=== PATIENT | female | born 1985 | race Caucasian/White ===

== ENCOUNTER 2018-04-29 10:42 | Emergency (ER) | payer OTHER ==
[2018-04-29 10:48] VITALS: RESP 18
--- NOTE | 2018-04-29 11:48 | ED ---
Skin/Abscess/FB HPI - General Chief complaint: Skin/Abscess/Foreign Body Stated complaint: Female Time Seen by Provider: 04/29/18 11:25 Source: patient, RN notes reviewed Mode of arrival: ambulatory Limitations: no limitations - History of Present Illness Initial comments: 32-year-old female presents emergency Department chief complaint of possible broken blood vessel. Patient states she's been sick recently placed on antibiotics for acute bronchitis. Patient states she coughs so hard that she tries to bear down because she has some stress incontinence. She states that she felt a bulge just above her urethra and felt they looked like spider veins. Patient states she has not with her lately but states he gets sore towards the day. Denies any redness no dysuria at this time though she was recently treated for urinary tract infection also. Patient denies any vaginal discharge she did state that she does started her menstrual cycle. She has no other complaints. - Related Data Home Medications Medication Instructions Recorded Confirmed Amoxicillin 500 mg PO DAILY 04/29/18 04/29/18 Allergies Allergy/AdvReac Type Severity Reaction Status Date / Time Sulfa (Sulfonamide AdvReac Nausea Verified 04/29/18 11:02 Antibiotics) Review of Systems ROS Statement: Those systems with pertinent positive or pertinent negative responses have been documented in the HPI. ROS Other: All systems not noted in ROS Statement are negative. Past Medical History Past Medical History: No Reported History History of Any Multi-Drug Resistant Organisms: None Reported Additional Past Surgical History / Comment(s): eye surgery, LEEP Past Psychological History: No Psychological Hx Reported Smoking Status: Current every day smoker Past Alcohol Use History: None Reported Past Drug Use History: None Reported General Exam Limitations: no limitations General appearance: alert, in no apparent distress Head exam: Present: atraumatic, normocephalic, normal inspection Respiratory exam: Present: normal lung sounds bilaterally. Absent: respiratory distress, wheezes, rales, rhonchi, stridor Cardiovascular Exam: Present: regular rate, normal rhythm, normal heart sounds. Absent: systolic murmur, diastolic murmur, rubs, gallop, clicks GI/Abdominal exam: Present: soft, normal bowel sounds. Absent: distended, tenderness, guarding, rebound, rigid External exam: Present: normal external exam, other (Exam performed with jasmin paredes). Absent: erythema, swelling, lesions, lacerations, ecchymosis Course Vital Signs 04/29/18 10:44 Temperature 98.2 F Pulse Rate 104 H Respiratory 18 Rate Blood Pressure 145/68 O2 Sat by Pulse 99 Oximetry Medical Decision Making - Medical Decision Making 32-year-old female presented for concern for ruptured blood vessel. There is no clinical signs of it, no clinical signs of infection. Patient did have urinalysis which showed hematuria secondary to chronic menses. Patient will be discharged return parameters discussed. - Lab Data Lab Results 04/29/18 04/29/18 Range/Units 11:50 11:50 Urine Color Dark Red Urine Appearance Bloody H (Clear) Urine RBC >182 H (0-5) /hpf Urine WBC 46 H (0-5) /hpf Urine HCG, Qual Not Detected (Not Detectd) Disposition Clinical Impression: Pelvic pain Disposition: HOME SELF-CARE Condition: Stable Instructions: Pelvic Pain (ED) Additional Instructions: Please return to the Emergency Department if symptoms worsen or any other concerns. Is patient prescribed a controlled substance at d/c from ED?: No Referrals: None,Stated [Primary Care Provider] - 1-2 days Time of Disposition: 13:12
[2018-04-29 12:45] LABS: Color,Urine Dark Red; RBC,Urine >182 /hpf (0-5); WBC,Urine 46 /hpf (0-5)
[2018-04-29 12:46] LABS: Appearance,Urine Bloody (Clear)
[2018-04-29 13:20] VITALS: BP 107/68; PULSE 84; TEMP 98.6
== END 2018-04-29 13:19 | disposition home or self-care (01) ==
LOC: EC 10:42
DX: R10.2 Pelvic and perineal pain (principal); R05 Cough; F17.200 Nicotine dependence, unspecified, uncomplicated; Z88.2 Allergy status to sulfonamides
CPT/HCPCS: 81001; 81025; 99283

== ENCOUNTER 2021-07-26 22:27 | Emergency (ER) | payer OTHER ==
[2021-07-26 22:33] VITALS: TEMP 98.1
[2021-07-26] MEDS ORDERED: SODIUM CHLORIDE 0.9% 1,000 ML IV STA (22:55)
[2021-07-26 23:07] LABS: Basophils # (A) 0.1 k/uL (0-0.2); Basophils % (A) 1 %; Eosinophils # (A) 0.1 k/uL (0-0.7); Eosinophils % (A) 2 %; HCT 45.5 % (34.0-46.0); HGB 15.8 gm/dL (11.4-16.0); Lymphocytes # (A) 1.5 k/uL (1.0-4.8); Lymphocytes % (A) 24 %; MCH 34.4 pg (25.0-35.0); MCHC 34.8 g/dL (31.0-37.0); MCV 98.8 fL (80.0-100.0); Mean Platelet Volume 7.3; Monocytes # (A) 0.5 k/uL (0-1.0); Monocytes % (A) 7 %; Neutrophils # (A) 4.1 k/uL (1.3-7.7); Neutrophils % (A) 64 %; Platelet Count 208 k/uL (150-450); WBC 6.4 k/uL (3.8-10.6)
[2021-07-26 23:19] LABS: INR 0.8 (<1.2); Partial Thromboplastin Time 24.9 sec (22.0-30.0); Prothrombin Time 9.5 sec (9.0-12.0)
[2021-07-26 23:32] LABS: ALT 22 U/L (4-34); AST 38 U/L (14-36); African American GFR (CKD) >90 (>60 ml/min/1.73 sqM); Albumin 4.7 g/dL (3.5-5.0); Alkaline Phosphatase 112 U/L (38-126); Anion Gap 14 mmol/L; Blood Urea Nitrogen 11 mg/dL (7-17); Calcium 10.2 mg/dL (8.4-10.2); Carbon Dioxide 21 mmol/L (22-30); Chloride 104 mmol/L (98-107); Glucose 114 mg/dL (74-99); Magnesium 1.9 mg/dL (1.6-2.3); Non-African American GFR(CKD) 88 (>60 ml/min/1.73 sqM); Potassium 3.3 mmol/L (3.5-5.1); Sodium 139 mmol/L (137-145); Total Bilirubin 0.6 mg/dL (0.2-1.3)
--- NOTE | 2021-07-26 23:45 | XR ---
EXAMINATION TYPE: XR chest 2V DATE OF EXAM: 07/26/2021 COMPARISON: NONE HISTORY: Dysrhythmia TECHNIQUE: 2 views FINDINGS: Heart and mediastinum are normal. Lungs are clear. Diaphragm is normal. Bony thorax appears normal. There are chest leads. IMPRESSION: Normal chest.
[2021-07-26 23:56] VITALS: RESP 20
[2021-07-27] MEDS ORDERED: POTASSIUM CHLORIDE ER 20 MEQ TAB.ER PO STA (00:07)
--- NOTE | 2021-07-27 00:09 | ED ---
General Adult HPI - General Chief complaint: Arrhythmia/Palpitations Stated complaint: Panic Attack Time Seen by Provider: 07/26/21 22:46 Source: patient Mode of arrival: ambulatory Limitations: no limitations - History of Present Illness Initial comments: 35 year-old female patient presents to the emergency department for evaluation of "pounding" heart. States that it started earlier today. She reports drinking alcohol today. Denies any chest pain or shortness of breath. Denies nausea or vomiting. She is concerned she may have COVID. States she does feel anxious with this. Reports intermittent history of similar symptoms. Reports mild cough and congestion. Denies any fever or chills. Patient denies any recent rash, abdominal pain, diarrhea, constipation, back pain, numbness, tingling, dizziness, weakness, hematuria, dysuria, urinary urgency, urinary frequency, headache, visual changes, or any other complaints. - Related Data Home Medications Medication Instructions Recorded Confirmed No Known Home Medications 07/26/21 07/26/21 Allergies Allergy/AdvReac Type Severity Reaction Status Date / Time Sulfa (Sulfonamide AdvReac Nausea Verified 07/26/21 23:11 Antibiotics) Review of Systems ROS Statement: Those systems with pertinent positive or pertinent negative responses have been documented in the HPI. ROS Other: All systems not noted in ROS Statement are negative. Past Medical History Past Medical History: No Reported History History of Any Multi-Drug Resistant Organisms: None Reported Additional Past Surgical History / Comment(s): eye surgery, LEEP Past Psychological History: No Psychological Hx Reported Smoking Status: Current every day smoker Past Alcohol Use History: Abuse, Daily Past Drug Use History: None Reported General Exam Limitations: no limitations General appearance: alert, in no apparent distress, other (This is a well- developed, well-nourished adult female in no acute distress.) Eye exam: Present: normal appearance, PERRL, EOMI. Absent: scleral icterus, conjunctival injection, periorbital swelling ENT exam: Present: normal exam, normal oropharynx, mucous membranes moist Respiratory exam: Present: normal lung sounds bilaterally. Absent: respiratory distress, wheezes, rales, rhonchi, stridor Cardiovascular Exam: Present: normal rhythm, tachycardia, normal heart sounds. Absent: systolic murmur, diastolic murmur, rubs, gallop, clicks GI/Abdominal exam: Present: soft, normal bowel sounds. Absent: distended, tenderness, guarding, rebound, rigid Neurological exam: Present: alert, oriented X3, CN II-XII intact Psychiatric exam: Present: normal affect, normal mood Skin exam: Present: warm, dry, intact, normal color. Absent: rash Course Vital Signs 07/26/21 07/26/21 07/26/21 22:30 23:07 23:54 Temperature 98.1 F Pulse Rate 131 H 110 H 109 H Respiratory 22 18 20 Rate Blood Pressure 134/83 147/107 O2 Sat by Pulse 98 95 98 Oximetry 07/27/21 00:22 Temperature Pulse Rate 99 Respiratory 20 Rate Blood Pressure 119/74 O2 Sat by Pulse 98 Oximetry EKG Findings - EKG Comments: EKG Findings:: EKG obtained at 2303 shows normal sinus rhythm with a rate of 119, DE interval is 60, QRS duration 72, QT 308, QTC 433. No evidence of ST elevation or depression. Medical Decision Making - Medical Decision Making 35-year-old female patient presented to the emergency department today for evalu ation of pounding heart. Physical examination is unremarkable. Lungs are clear to auscultation. She is mildly tachycardic. EKG is unremarkable. Labs reviewed and did reveal potassium 3.3. Glucose 114. COVID was negative. States she does feel better she is requesting to go home. Instructed to follow-up with her primary care physician for recheck in 1-2 days. Return parameters were discussed in detail. She verbalizes understanding and agrees this plan. My attending is Dr. Cunha. - Lab Data Result diagrams: 07/26/21 22:57 07/26/21 22:57 Lab Results 07/26/21 07/26/21 07/26/21 Range/Units 22:57 22:57 22:57 WBC 6.4 (3.8-10.6) k/uL RBC 4.60 (3.80-5.40) m/uL Hgb 15.8 (11.4-16.0) gm/dL Hct 45.5 (34.0-46.0) % MCV 98.8 (80.0-100.0) fL MCH 34.4 (25.0-35.0) pg MCHC 34.8 (31.0-37.0) g/dL RDW 11.0 L (11.5-15.5) % Plt Count 208 (150-450) k/uL MPV 7.3 Neutrophils % 64 % Lymphocytes % 24 % Monocytes % 7 % Eosinophils % 2 % Basophils % 1 % Neutrophils # 4.1 (1.3-7.7) k/uL Lymphocytes # 1.5 (1.0-4.8) k/uL Monocytes # 0.5 (0-1.0) k/uL Eosinophils # 0.1 (0-0.7) k/uL Basophils # 0.1 (0-0.2) k/uL PT 9.5 (9.0-12.0) sec INR 0.8 (<1.2) APTT 24.9 (22.0-30.0) sec Sodium 139 (137-145) mmol/L Potassium 3.3 L (3.5-5.1) mmol/L Chloride 104 (98-107) mmol/L Carbon Dioxide 21 L (22-30) mmol/L Anion Gap 14 mmol/L BUN 11 (7-17) mg/dL Creatinine 0.85 (0.52-1.04) mg/dL Est GFR (CKD-EPI)AfAm >90 (>60 ml/min/1.73 sqM) Est GFR (CKD-EPI)NonAf 88 (>60 ml/min/1.73 sqM) Glucose 114 H (74-99) mg/dL Calcium 10.2 (8.4-10.2) mg/dL Magnesium 1.9 (1.6-2.3) mg/dL Total Bilirubin 0.6 (0.2-1.3) mg/dL AST 38 H (14-36) U/L ALT 22 (4-34) U/L Alkaline Phosphatase 112 (38-126) U/L Troponin I (0.000-0.034) ng/mL Total Protein 8.0 (6.3-8.2) g/dL Albumin 4.7 (3.5-5.0) g/dL TSH 2.920 (0.465-4.680) mIU/L Coronavirus (PCR) (Not Detectd) 07/26/21 07/26/21 Range/Units 22:57 23:12 WBC (3.8-10.6) k/uL RBC (3.80-5.40) m/uL Hgb (11.4-16.0) gm/dL Hct (34.0-46.0) % MCV (80.0-100.0) fL MCH (25.0-35.0) pg MCHC (31.0-37.0) g/dL RDW (11.5-15.5) % Plt Count (150-450) k/uL MPV Neutrophils % % Lymphocytes % % Monocytes % % Eosinophils % % Basophils % % Neutrophils # (1.3-7.7) k/uL Lymphocytes # (1.0-4.8) k/uL Monocytes # (0-1.0) k/uL Eosinophils # (0-0.7) k/uL Basophils # (0-0.2) k/uL PT (9.0-12.0) sec INR (<1.2) APTT (22.0-30.0) sec Sodium (137-145) mmol/L Potassium (3.5-5.1) mmol/L Chloride (98-107) mmol/L Carbon Dioxide (22-30) mmol/L Anion Gap mmol/L BUN (7-17) mg/dL Creatinine (0.52-1.04) mg/dL Est GFR (CKD-EPI)AfAm (>60 ml/min/1.73 sqM) Est GFR (CKD-EPI)NonAf (>60 ml/min/1.73 sqM) Glucose (74-99) mg/dL Calcium (8.4-10.2) mg/dL Magnesium (1.6-2.3) mg/dL Total Bilirubin (0.2-1.3) mg/dL AST (14-36) U/L ALT (4-34) U/L Alkaline Phosphatase (38-126) U/L Troponin I <0.012 (0.000-0.034) ng/mL Total Protein (6.3-8.2) g/dL Albumin (3.5-5.0) g/dL TSH (0.465-4.680) mIU/L Coronavirus (PCR) Not Detected (Not Detectd) - Radiology Data Radiology results: report reviewed, image reviewed 2 views of the chest are obtained. Report was reviewed in its entirety. Impression by Dr. Sunshine shows normal chest. Disposition Clinical Impression: Racing heart beat, Viral upper respiratory infection Disposition: HOME SELF-CARE Condition: Good Instructions (If sedation given, give patient instructions): Heart Palpitations (ED), Upper Respiratory Infection (ED) Additional Instructions: [place] fluids. Follow-up with your primary care physician for recheck in 1-2 days. Return for any new, worsening, or concerning symptoms. Is patient prescribed a controlled substance at d/c from ED?: No Referrals: None,Stated [Primary Care Provider] - 1-2 days Time of Disposition: 00:08
[2021-07-27 00:24] VITALS: BP 119/74; PULSE 99
== END 2021-07-27 00:21 | disposition home or self-care (01) ==
LOC: EC 22:27
DX: R00.0 Tachycardia, unspecified (principal); J06.9 Acute upper respiratory infection, unspecified; F17.200 Nicotine dependence, unspecified, uncomplicated; F10.10 Alcohol abuse, uncomplicated; Z20.822 Contact with and (suspected) exposure to COVID-19
CPT/HCPCS: 36415; 71046; 80053; 83735; 84443; 84484; 85025; 85610; 85730; 87635; 96360; 99285

== ENCOUNTER 2022-05-13 09:43 | Emergency (ER) | payer OTHER ==
[2022-05-13 09:56] VITALS: BP 165/93; PULSE 104; RESP 18; TEMP 98.2
--- NOTE | 2022-05-13 10:12 | ED ---
Female Urogenital HPI - General Chief complaint: Vaginal Bleeding Stated complaint: Vaginal Bleeding Time Seen by Provider: 05/13/22 09:56 Source: patient, RN notes reviewed Mode of arrival: ambulatory Limitations: no limitations - History of Present Illness Initial comments: This is a 36-year-old female who presents to the emergency department for vagin al bleeding. States that her typical periods usually last a month, however she has been bleeding for 1 month at this point. Also complaining of lower back pain. States that her bladder feels "strange", and she wonders if she has a urinary tract infection. Otherwise denies any lower abdominal pain. She is not on any form of control. She has been unable to get into her [employer], prompting her visit to the emergency department. She's never had anything like this happen in the past. Currently soaking through a pad or tampon every 1-2 hours. Denies any nausea or vomiting. Denies any fevers, chills, sore throat, cough, dyspnea, chest pain, palpitations, abdominal pain, nausea, vomiting, diarrhea, or headaches. MD Complaint: vaginal bleeding Onset/Timin -: month(s) Last Menstrual Period: 04/15/22 - Related Data Previous Rx's Medication Instructions Recorded Cephalexin [Keflex] 500 mg PO Q12HR 7 Days #14 cap 05/13/22 medroxyPROGESTERone [Provera] 20 mg PO TID 7 Days #42 tablet 05/13/22 Allergies Allergy/AdvReac Type Severity Reaction Status Date / Time Sulfa (Sulfonamide AdvReac Nausea Verified 05/13/22 10:52 Antibiotics) Review of Systems ROS Statement: Those systems with pertinent positive or pertinent negative responses have been documented in the HPI. ROS Other: All systems not noted in ROS Statement are negative. Past Medical History Past Medical History: No Reported History History of Any Multi-Drug Resistant Organisms: None Reported Additional Past Surgical History / Comment(s): eye surgery, LEEP Past Psychological History: No Psychological Hx Reported Smoking Status: Current every day smoker Past Alcohol Use History: Abuse, Daily Past Drug Use History: None Reported General Exam Limitations: no limitations General appearance: alert, in no apparent distress Head exam: Present: atraumatic, normocephalic, normal inspection Respiratory exam: Present: normal lung sounds bilaterally. Absent: respiratory distress, wheezes, rales, rhonchi, stridor Cardiovascular Exam: Present: regular rate, normal rhythm, normal heart sounds. Absent: systolic murmur, diastolic murmur, rubs, gallop, clicks GI/Abdominal exam: Present: soft, tenderness (LLQ), normal bowel sounds. Absent: distended Neurological exam: Present: alert, oriented X3, CN II-XII intact Psychiatric exam: Present: normal affect, normal mood Skin exam: Present: warm, dry, intact, normal color. Absent: rash Course Vital Signs 05/13/22 09:52 Temperature 98.2 F Pulse Rate 104 H Respiratory 18 Rate Blood Pressure 165/93 O2 Sat by Pulse 97 Oximetry Medical Decision Making - Medical Decision Making This is a 36-year-old female who presents to the emergency department for vaginal bleeding. On CBC, H&H is stable. Lab work is otherwise nonactionable. Transvaginal ultrasound obtained, which revealed a subtle endometrial anechoic cyst suggestive of adenomyosis. Urinalysis is also positive for an infection. Prescription for Keflex provided to be taken for 7 days. Discussed with the patient that the adenomyosis is most likely the cause of the bleeding. Due to the persistence of the bleeding, will put the patient on medroxyprogesterone, 20 mg 3 times a day for 7 days. Side effects discussed with the patient, in that she may experience abdominal pain and dizziness. Additionally, she was warned of the risk for heart attack, stroke, and other thromboembolism. Advised that if she develops any chest pain, difficulty breathing, or extremity pain, she should stop taking this immediately. Patient expresses understanding and wishes to proceed with medication. She was given information to follow up with the local [employer]. Return precautions reviewed in depth, the patient is instructed to return to the emergency department with any new, worsening, or concerning symptoms. Patient verbalized understanding. This case was discussed in detail with the attending ED physician. Presentation, findings, and treatment plan discussed in detail as well. - Lab Data Result diagrams: 05/13/22 10:23 05/13/22 10: Lab Results 05/13/22 05/13/22 05/13/22 Range/Units 10:23 10: 10:23 WBC 4.0 (3.8-10.6) k/uL RBC 4.21 (3.80-5.40) m/uL Hgb 14.8 (11.4-16.0) gm/dL Hct 41.2 (34.0-46.0) % MCV 97.9 (80.0-100.0) fL MCH 35.3 H (25.0-35.0) pg MCHC 36.1 (31.0-37.0) g/dL RDW 11.4 L (11.5-15.5) % Plt Count 228 (150-450) k/uL MPV 8.0 Neutrophils % 42 % Lymphocytes % 46 % Monocytes % 9 % Eosinophils % 1 % Basophils % 1 % Neutrophils # 1.7 (1.3-7.7) k/uL Lymphocytes # 1.8 (1.0-4.8) k/uL Monocytes # 0.3 (0-1.0) k/uL Eosinophils # 0.1 (0-0.7) k/uL Basophils # 0.0 (0-0.2) k/uL PT 9.5 (9.0-12.0) sec INR 0.9 (<1.2) APTT 23.9 (22.0-30.0) sec Sodium 140 (137-145) mmol/L Potassium 3.9 (3.5-5.1) mmol/L Chloride 104 (98-107) mmol/L Carbon Dioxide 27 (22-30) mmol/L Anion Gap 9 mmol/L BUN 11 (7-17) mg/dL Creatinine 0.69 (0.52-1.04) mg/dL Est GFR (CKD-EPI)AfAm >90 (>60 ml/min/1.73 sqM) Est GFR (CKD-EPI)NonAf >90 (>60 ml/min/1.73 sqM) Glucose 121 H (74-99) mg/dL Calcium 9.8 (8.4-10.2) mg/dL Total Bilirubin 0.4 (0.2-1.3) mg/dL AST 32 (14-36) U/L ALT 22 (4-34) U/L Alkaline Phosphatase 76 (38-126) U/L Total Protein 7.3 (6.3-8.2) g/dL Albumin 4.7 (3.5-5.0) g/dL TSH 2.290 (0.465-4.680) mIU/L Urine Color Urine Appearance (Clear) Urine pH (5.0-8.0) Ur Specific [place] (1.001-1.035) Urine Protein (Negative) Urine Glucose (UA) (Negative) Urine Ketones (Negative) Urine Blood (Negative) Urine Nitrite (Negative) Urine Bilirubin (Negative) Urine Urobilinogen (<2.0) mg/dL Ur Leukocyte Esterase (Negative) Urine RBC (0-5) /hpf Urine WBC (0-5) /hpf Ur Squamous Epith Cells (0-4) /hpf Urine Bacteria (None) /hpf Hyaline Casts (0-2) /lpf Urine Mucus (None) /hpf Urine HCG, Qual (Not Detectd) 05/13/22 05/13/22 Range/Units 11:54 11:54 WBC (3.8-10.6) k/uL RBC (3.80-5.40) m/uL Hgb (11.4-16.0) gm/dL Hct (34.0-46.0) % MCV (80.0-100.0) fL MCH (25.0-35.0) pg MCHC (31.0-37.0) g/dL RDW (11.5-15.5) % Plt Count (150-450) k/uL MPV Neutrophils % % Lymphocytes % % Monocytes % % Eosinophils % % Basophils % % Neutrophils # (1.3-7.7) k/uL Lymphocytes # (1.0-4.8) k/uL Monocytes # (0-1.0) k/uL Eosinophils # (0-0.7) k/uL Basophils # (0-0.2) k/uL PT (9.0-12.0) sec INR (<1.2) APTT (22.0-30.0) sec Sodium (137-145) mmol/L Potassium (3.5-5.1) mmol/L Chloride (98-107) mmol/L Carbon Dioxide (22-30) mmol/L Anion Gap mmol/L BUN (7-17) mg/dL Creatinine (0.52-1.04) mg/dL Est GFR (CKD-EPI)AfAm (>60 ml/min/1.73 sqM) Est GFR (CKD-EPI)NonAf (>60 ml/min/1.73 sqM) Glucose (74-99) mg/dL Calcium (8.4-10.2) mg/dL Total Bilirubin (0.2-1.3) mg/dL AST (14-36) U/L ALT (4-34) U/L Alkaline Phosphatase (38-126) U/L Total Protein (6.3-8.2) g/dL Albumin (3.5-5.0) g/dL TSH (0.465-4.680) mIU/L Urine Color Yellow Urine Appearance Cloudy H (Clear) Urine pH 6.5 (5.0-8.0) Ur Specific [place] 1.022 (1.001-1.035) Urine Protein Trace H (Negative) Urine Glucose (UA) Negative (Negative) Urine Ketones Negative (Negative) Urine Blood Large H (Negative) Urine Nitrite Negative (Negative) Urine Bilirubin Negative (Negative) Urine Urobilinogen <2.0 (<2.0) mg/dL Ur Leukocyte Esterase Large H (Negative) Urine RBC >182 H (0-5) /hpf Urine WBC 51 H (0-5) /hpf Ur Squamous Epith Cells 6 H (0-4) /hpf Urine Bacteria Rare H (None) /hpf Hyaline Casts 1 (0-2) /lpf Urine Mucus Rare H (None) /hpf Urine HCG, Qual Not Detected (Not Detectd) - Radiology Data Radiology results: report reviewed, image reviewed Disposition Clinical Impression: Dysfunctional uterine bleeding, UTI (urinary tract infection), Adenomyosis Disposition: HOME SELF-CARE Instructions (If sedation given, give patient instructions): Menorrhagia (ED) Additional Instructions: Return to the emergency department with any new, worsening, or concerning symptoms. Take the medroxyprogesterone 3 times daily for 7 days. If you develop any significant cramping, leg pain, chest pain, or shortness of breath, stop taking this immediately. Take the Keflex as prescribed for 7 days. Follow up with an [employer], there are two providers listed below. You can take Tylenol and ibuprofen for pain relief. Follow up with your primary care provider in 1-2 days. Prescriptions: Cephalexin [Keflex] 500 mg PO Q12HR 7 Days #14 cap medroxyPROGESTERone [Provera] 20 mg PO TID 7 Days #42 tablet Is patient prescribed a controlled substance at d/c from ED?: No Referrals: None,Stated [Primary Care Provider] - 1-2 days Leni Muse MD [STAFF PHYSICIAN] - 1-2 days Raisa Ruvalcaba DO [Doctor of Osteopathic Medicine] - 1-2 days
[2022-05-13 10:28] LABS: Basophils % (A) 1 %; Eosinophils # (A) 0.1 k/uL (0-0.7); Eosinophils % (A) 1 %; HCT 41.2 % (34.0-46.0); HGB 14.8 gm/dL (11.4-16.0); Lymphocytes # (A) 1.8 k/uL (1.0-4.8); Lymphocytes % (A) 46 %; MCH 35.3 pg (25.0-35.0); MCHC 36.1 g/dL (31.0-37.0); MCV 97.9 fL (80.0-100.0); Monocytes # (A) 0.3 k/uL (0-1.0); Monocytes % (A) 9 %; Neutrophils # (A) 1.7 k/uL (1.3-7.7); Neutrophils % (A) 42 %; Platelet Count 228 k/uL (150-450); RBC 4.21 m/uL (3.80-5.40); RDW 11.4 % (11.5-15.5)
[2022-05-13 10:38] LABS: ALT 22 U/L (4-34); AST 32 U/L (14-36); African American GFR (CKD) >90 (>60 ml/min/1.73 sqM); Albumin 4.7 g/dL (3.5-5.0); Alkaline Phosphatase 76 U/L (38-126); Anion Gap 9 mmol/L; Blood Urea Nitrogen 11 mg/dL (7-17); Calcium 9.8 mg/dL (8.4-10.2); Carbon Dioxide 27 mmol/L (22-30); Chloride 104 mmol/L (98-107); Glucose 121 mg/dL (74-99); Non-African American GFR(CKD) >90 (>60 ml/min/1.73 sqM); Potassium 3.9 mmol/L (3.5-5.1); Sodium 140 mmol/L (137-145); Total Bilirubin 0.4 mg/dL (0.2-1.3); Total Protein 7.3 g/dL (6.3-8.2)
[2022-05-13 10:50] LABS: INR 0.9 (<1.2); Partial Thromboplastin Time 23.9 sec (22.0-30.0); Prothrombin Time 9.5 sec (9.0-12.0)
--- NOTE | 2022-05-13 12:09 | US ---
EXAMINATION TYPE: US transvaginal DATE OF EXAM: 05/13/2022 COMPARISON: US 2010 CLINICAL HISTORY: Vaginal bleeding x1 month. Vaginal bleeding x 1 month. Hx LEEP procedure, 2 abortio ns. A2. TECHNIQUE: Transvaginal (TV). Date of LMP: Unknown EXAM MEASUREMENTS: Uterus: 9.0 x 4.9 x 4.6 cm Endometrial Stripe: 1.31 cm Right Ovary: 4.0 x 2.9 x 3.0 cm Left Ovary: Not seen 1. Uterus: Anteverted Anechoic area seen: 0.6 x 0.4 x 0.5 cm. Anechoic area seen in cervix: 1.0 x 0.9 x 0.7 cm. 2. Endometrium: Measures 1.31 cm. 3. Right Ovary: Septated anechoic area seen right ovary: 3.2 x 2.3 x 2.4 cm. 4. Left Ovary: Not seen. Spectral, color and waveform doppler imaging shows arterial and venous flow within the right ovary. Left ovary not seen. 5. Bilateral Adnexa: Appear wnl 6. Posterior cul-de-sac: Appears wnl IMPRESSION: 1. There is subendometrial anechoic cyst could represent adenomyosis. The endometrium is otherwise w ithin normal limits for thickness. No acute process visualized. 2. Right ovarian dominant follicle with thin septation.
[2022-05-13 12:30] LABS: Appearance,Urine Cloudy (Clear); Bacteria,Urine Rare /hpf; Bilirubin,Urine Negative (Negative); Blood,Urine Large (Negative); Color,Urine Yellow; Glucose,Urine (UA) Negative (Negative); Hyaline Casts,Urine 1 /lpf (0-2); Ketones,Urine Negative (Negative); Leukocyte Esterase,Urine Large (Negative); Mucus,Urine Rare /hpf; Nitrite,Urine Negative (Negative); PH, Urine 6.5 (5.0-8.0); Protein,Urine Trace (Negative); RBC,Urine >182 /hpf (0-5); Specific Gravity,Urine 1.022 (1.001-1.035); Squamous Epithelial Cell,Urine 6 /hpf (0-4); Urobilinogen,Urine <2.0 mg/dL (<2.0); WBC,Urine 51 /hpf (0-5)
== END 2022-05-13 13:40 | disposition home or self-care (01) ==
LOC: EC 09:43
DX: N93.8 Other specified abnormal uterine and vaginal bleeding (principal); N39.0 Urinary tract infection, site not specified; N80.03 Adenomyosis of the uterus; F17.200 Nicotine dependence, unspecified, uncomplicated; Z88.2 Allergy status to sulfonamides
CPT/HCPCS: 36415; 76830; 80053; 81001; 81025; 84443; 85025; 85610; 85730; 87086; 93975; 99284

== ENCOUNTER 2023-11-02 22:47 | Emergency (ER) | payer OTHER ==
[2023-11-03] MEDS: LORazepam 1 MG TAB PO STA (00:34)
--- NOTE | 2023-11-03 00:57 | ED ---
Anxiety HPI - General Chief Complaint: Anxiety Stated Complaint: panic attack Time Seen by Provider: 11/02/23 23:59 Source: patient Mode of arrival: ambulatory - History of Present Illness Initial Comments: 37-year-old female presenting with chief complaint of anxiety attack. She states that symptoms started suddenly this evening. She was experiencing a racing heart sensation as well as some difficulty breathing. She had some numbness and tingling in her fingers as well. She denies any chest pain. Admits to nausea and vomiting. No abdominal pain. No cough, congestion, sore throat, fever, chills. - Related Data Home Medications: Previous Rx's Medication Instructions Recorded Cephalexin [Keflex] 500 mg PO Q12HR 7 Days #14 cap 05/13/22 medroxyPROGESTERone [Provera] 20 mg PO TID 7 Days #42 tablet 05/13/22 Allergies/Adverse Reactions: Allergies Allergy/AdvReac Type Severity Reaction Status Date / Time Sulfa (Sulfonamide AdvReac Nausea Verified 11/02/23 22:55 Antibiotics) Review of Systems ROS Statement: Those systems with pertinent positive or pertinent negative responses have been documented in the HPI. ROS Other: All systems not noted in ROS Statement are negative. Past Medical History Past Medical History: No Reported History History of Any Multi-Drug Resistant Organisms: None Reported Additional Past Surgical History / Comment(s): eye surgery, LEEP Past Psychological History: No Psychological Hx Reported Smoking Status: Current every day smoker Past Alcohol Use History: Abuse, Daily Past Drug Use History: None Reported General Exam Limitations: no limitations General appearance: alert, in no apparent distress Head exam: Present: atraumatic, normocephalic Eye exam: Present: normal appearance, EOMI Neck exam: Present: normal inspection. Absent: meningismus Respiratory exam: Present: normal lung sounds bilaterally. Absent: respiratory distress, wheezes, rales, rhonchi, stridor Cardiovascular Exam: Present: regular rate, normal rhythm, normal heart sounds. Absent: systolic murmur, diastolic murmur, rubs, gallop, clicks Neurological exam: Present: alert, oriented X3 Psychiatric exam: Present: normal affect, normal mood Skin exam: Present: warm, dry Course Vital Signs 11/02/23 11/03/23 11/03/23 22:53 00:33 01:57 Temperature 98 F 98.2 F Pulse Rate 114 H 82 Respiratory 20 18 16 Rate Blood Pressure 156/82 157/95 O2 Sat by Pulse 98 97 Oximetry Medical Decision Making - Medical Decision Making Was pt. sent in by a medical professional or institution (, KATHYA, CORPORATE LEGAL ASSISTANT, urgent care, hospital, or [facility]...) When possible be specific @ -No Did you speak to anyone other than the patient for history (EMS, parent, family, police, friend...)? What history was obtained from this source @ -No Did you review nursing and triage notes (agree or disagree)? Why? @ -I reviewed and agree with nursing and triage notes Were old charts reviewed (outside hosp., previous admission, EMS record, old EKG, old radiological studies, urgent care reports/EKG's, [facility] records)? Report findings @ -No old charts were reviewed Differential Diagnosis (chest pain, altered mental status, abdominal pain women, abdominal pain men, vaginal bleeding, weakness, fever, dyspnea, syncope, headache, dizziness, GI bleed, back pain, seizure, CVA, palpatations, mental health, musculoskeletal)? @ -Differential includes anxiety, dysrhythmia, pneumothorax, pneumonia, pulmonary embolism, this is not an all-inclusive list EKG interpreted by me (3pts min.). @ -EKG shows sinus rhythm ventricular rate 82. NM interval 132. QRS 84. QT 379. QTc 418. No ST deviation. X-rays interpreted by me (1pt min.). @ -Chest x-ray shows no acute process CT interpreted by me (1pt min.). @ -None done U/S interpreted by me (1pt. min.). @ -None done What testing was considered but not performed or refused? (CT, X-rays, U/S, labs)? Why? @ -None What meds were considered but not given or refused? Why? @ -None Did you discuss the management of the patient with other professionals (professionals i.e. , KATHYA, CORPORATE LEGAL ASSISTANT, lab, RT, psych nurse, social work case manager, mails supervisor, teacher, helicopter officer, high risk case manager)? Give summary @ -No Was smoking cessation discussed for >3mins.? @ -No Was critical care preformed (if so, how long)? @ -No Were there social determinants of health that impacted care today? How? (Homelessness, low income, unemployed, alcoholism, drug addiction, transportation, low edu. Level, literacy, decrease access to med. care, care home, rehab)? @ -No Was there de-escalation of care discussed even if they declined (Discuss DNR or withdrawal of care, Hospice)? DNR status @ -No What co-morbidities impacted this encounter? (DM, HTN, Smoking, COPD, CAD, Cancer, CVA, ARF, Chemo, Hep., AIDS, mental health diagnosis, sleep apnea, morbid obesity)? @ -None Was patient admitted / discharged? Hospital course, mention meds given and route, prescriptions, significant lab abnormalities, going to OR and other pertinent info. @ -37-year-old female presenting with chief complaint of anxiety attack. History and physical exam are conducted. The patient is somewhat tachycardic. She is given 1 mg of Ativan. EKG shows sinus rhythm and chest x-ray shows no acute process. On reassessment patient reports resolution of her symptoms. She is requesting discharge. Follow-up with PCP. Report back to ER with any new or worsening symptoms. Discussed return parameters and answered all questions. Patient conveyed verbal understanding and agreed to the plan. I discussed this case in detail with my attending Dr. Cunha Undiagnosed new problem with uncertain prognosis? @ -No Drug Therapy requiring intensive monitoring for toxicity (Heparin, Nitro, Insulin, Cardizem)? @ -No Were any procedures done? @ -No Diagnosis/symptom? @ -Acute anxiety Acute, or Chronic, or Acute on Chronic? @ -Acute Uncomplicated (without systemic symptoms) or Complicated (systemic symptoms)? @ -complicated Side effects of treatment? @ -No Exacerbation, Progression, or Severe Exacerbation? @ -No Poses a threat to life or bodily function? How? (Chest pain, [place], [place], pneumonia, PE, COPD, DKA, ARF, appy, cholecystitis, CVA, Diverticulitis, Homicidal, Suicidal, threat to staff... and all critical care pts) @ -Low likelihood Disposition Clinical Impression: Acute anxiety Disposition: HOME SELF-CARE Condition: Good Instructions (If sedation given, give patient instructions): Generalized Anxiety Disorder (ED) Additional Instructions: Follow-up with PCP. Report back to ER with any new or worsening symptoms. Is patient prescribed a controlled substance at d/c from ED?: No Referrals: None,Stated [Primary Care Provider] - 1-2 days Time of Disposition: 01:50
--- NOTE | 2023-11-03 01:07 | XR ---
EXAM: XR Chest, 2 Views CLINICAL HISTORY: ITS.REASON XR Reason: heart racing TECHNIQUE: Frontal and lateral views of the chest. COMPARISON: No relevant prior studies available. FINDINGS: Lungs: Unremarkable. No consolidation. Pleural space: Unremarkable. No pneumothorax. Heart: Unremarkable. No cardiomegaly. Mediastinum: Unremarkable. Normal mediastinal contour. Bones/joints: Unremarkable. No acute fracture. IMPRESSION: Normal chest x-rays.
[2023-11-03 02:31] VITALS: BP 157/95; PULSE 82; RESP 16; TEMP 98.2
== END 2023-11-03 01:57 | disposition home or self-care (01) ==
LOC: EC 22:47
DX: F41.9 Anxiety disorder, unspecified (principal); F17.200 Nicotine dependence, unspecified, uncomplicated; I25.2 Old myocardial infarction; Z88.2 Allergy status to sulfonamides
CPT/HCPCS: 71046; 93005; 99283

== ENCOUNTER 2023-11-15 05:26 | Emergency (ER) | payer OTHER ==
[2023-11-15 06:21] VITALS: TEMP 97.3
--- NOTE | 2023-11-15 06:22 | ED ---
ENT HPI - General Chief complaint: ENT Stated complaint: Ear pain Time Seen by Provider: 11/15/23 06:08 Source: patient, RN notes reviewed Mode of arrival: ambulatory Limitations: no limitations - History of Present Illness Initial comments: 37-year-old female presents emergency department complaint of left ear pain. Patient states started sore throat and congestion few days ago states she has severe left ear pain since last night. Patient denies any fevers or chills she states she has had ear infections in the past has been recurrent issue. Patient offers no other complaints. - Related Data Previous Rx's Medication Instructions Recorded Cephalexin [Keflex] 500 mg PO Q12HR 7 Days #14 cap 05/13/22 medroxyPROGESTERone [Provera] 20 mg PO TID 7 Days #42 tablet 05/13/22 Amoxic-Pot Clav 875-125Mg 1 tab PO Q12HR #20 tab 11/15/23 [Augmentin 875-125] Allergies Allergy/AdvReac Type Severity Reaction Status Date / Time Sulfa (Sulfonamide AdvReac Nausea Verified 11/15/23 05:28 Antibiotics) Review of Systems ROS Statement: Those systems with pertinent positive or pertinent negative responses have been documented in the HPI. ROS Other: All systems not noted in ROS Statement are negative. Past Medical History Past Medical History: No Reported History History of Any Multi-Drug Resistant Organisms: None Reported Additional Past Surgical History / Comment(s): eye surgery, LEEP Past Psychological History: No Psychological Hx Reported Smoking Status: Current every day smoker Past Alcohol Use History: Abuse, Daily Past Drug Use History: None Reported General Exam Limitations: no limitations General appearance: alert, in no apparent distress Head exam: Present: atraumatic, normocephalic, normal inspection Eye exam: Present: normal appearance, PERRL, EOMI. Absent: scleral icterus, conjunctival injection, periorbital swelling ENT exam: Present: normal oropharynx, mucous membranes moist. Absent: normal exam, TM's normal bilaterally (Left erythematous, bulging) Neck exam: Present: normal inspection. Absent: tenderness, meningismus, lymphadenopathy Respiratory exam: Present: normal lung sounds bilaterally. Absent: respiratory distress, wheezes, rales, rhonchi, stridor Cardiovascular Exam: Present: regular rate, normal rhythm, normal heart sounds. Absent: systolic murmur, diastolic murmur, rubs, gallop, clicks Course Vital Signs 11/15/23 11/15/23 05:28 06:43 Temperature 97.3 F L Pulse Rate 96 93 Respiratory 17 18 Rate Blood Pressure 144/93 148/99 O2 Sat by Pulse 98 95 Oximetry Medical Decision Making - Medical Decision Making Was pt. sent in by a medical professional or institution (KATHYA Birch, CASING WORKER, urgent care, hospital, or detention...) When possible be specific @ -No Did you speak to anyone other than the patient for history (EMS, parent, family, police, friend...)? What history was obtained from this source @ -No Did you review nursing and triage notes (agree or disagree)? Why? @ -I reviewed and agree with nursing and triage notes Were old charts reviewed (outside hosp., previous admission, EMS record, old EKG, old radiological studies, urgent care reports/EKG's, detention records)? Report findings @ -No old charts were reviewed Differential Diagnosis (chest pain, altered mental status, abdominal pain women, abdominal pain men, vaginal bleeding, weakness, fever, dyspnea, syncope, headache, dizziness, GI bleed, back pain, seizure, CVA, palpatations, mental health, musculoskeletal)? @ -Otitis media otitis externa, mastoiditis EKG interpreted by me (3pts min.). @ -None X-rays interpreted by me (1pt min.). @ -None done CT interpreted by me (1pt min.). @ -None done U/S interpreted by me (1pt. min.). @ -None done What testing was considered but not performed or refused? (CT, X-rays, U/S, labs)? Why? @ -None What meds were considered but not given or refused? Why? @ -None Did you discuss the management of the patient with other professionals (professionals i.e. KATHYA Birch, CASING WORKER, lab, RT, psych nurse, social welfare research worker, documentation analyst, teacher, lead security officer, case finisher)? Give summary @ -No Was smoking cessation discussed for >3mins.? @ -No Was critical care preformed (if so, how long)? @ -No Were there social determinants of health that impacted care today? How? (Homelessness, low income, unemployed, alcoholism, drug addiction, transportation, low edu. Level, literacy, decrease access to med. care, [facility], rehab)? @ -No Was there de-escalation of care discussed even if they declined (Discuss DNR or withdrawal of care, Hospice)? DNR status @ -No What co-morbidities impacted this encounter? (DM, HTN, Smoking, COPD, CAD, Cancer, CVA, ARF, Chemo, Hep., AIDS, mental health diagnosis, sleep apnea, morbid obesity)? @ -None Was patient admitted / discharged? Hospital course, mention meds given and route, prescriptions, significant lab abnormalities, going to OR and other pertinent info. @ -Discharge patient has left otitis media, no evidence of otitis externa or mastoiditis. Patient discharged on Augmentin. Return parameters sterling. Undiagnosed new problem with uncertain prognosis? @ -No Drug Therapy requiring intensive monitoring for toxicity (Heparin, Nitro, Insulin, Cardizem)? @ -No Were any procedures done? @ -No Diagnosis/symptom? @ -Otitis media Acute, or Chronic, or Acute on Chronic? @ -Acute Uncomplicated (without systemic symptoms) or Complicated (systemic symptoms)? @ -Uncomplicated Side effects of treatment? @ -No Exacerbation, Progression, or Severe Exacerbation? @ -No Poses a threat to life or bodily function? How? (Chest pain, [place], [place], pneumonia, PE, COPD, DKA, ARF, appy, cholecystitis, CVA, Diverticulitis, Homicidal, Suicidal, threat to staff... and all critical care pts) @ -No Disposition Clinical Impression: Otitis media Disposition: HOME SELF-CARE Condition: Stable Instructions (If sedation given, give patient instructions): Earache (ED) Additional Instructions: Please return to the Emergency Department if symptoms worsen or any other concerns. Prescriptions: Amoxic-Pot Clav 875-125Mg [Augmentin 875-125] 1 tab PO Q12HR #20 tab Is patient prescribed a controlled substance at d/c from ED?: No Referrals: None,Stated [Primary Care Provider] - 1-2 days Time of Disposition: 06:22
[2023-11-15] MEDS: IBUPROFEN 600 MG TAB PO STA (06:40)
[2023-11-15] MEDS: ACETAMINOPHEN TAB 325 MG TAB PO STA (06:41)
[2023-11-15] MEDS: AMOXIC-POT CLAV 875-125MG 1 EACH TAB PO STA (06:41)
[2023-11-15 07:14] VITALS: BP 148/99; PULSE 93; RESP 18
== END 2023-11-15 06:43 | disposition home or self-care (01) ==
LOC: EC 05:26
DX: H66.92 Otitis media, unspecified, left ear (principal); F17.200 Nicotine dependence, unspecified, uncomplicated; Z88.2 Allergy status to sulfonamides
CPT/HCPCS: 99283

== ENCOUNTER 2024-06-23 14:57 | Emergency (ER) | payer OTHER ==
--- NOTE | 2024-06-23 15:13 | ED ---
General Adult HPI - General Source: patient, RN notes reviewed Mode of arrival: ambulatory Limitations: no limitations <Candida Mario - Last Filed: 06/23/24 15:12> <Karen Beck - Last Filed: 06/24/24 23:05> - General Stated complaint: heart flutters, sob, dizziness Time Seen by Provider: 06/23/24 15:12 - History of Present Illness Initial comments: Quick note: 38-year-old female presented the ER for evaluation of elevated blood pressure. Patient was seen by urgent care yesterday for URI symptoms. Patient was noted to be hypertensive. She is not currently on any antihypertensive medications. Patient states she woke up this morning feeling as if she cannot breathe and shaking. She reports "flusters" in her chest. No chest pain. (Candida Mario) 38-year-old female presents emergency department with elevated blood pressure. States that over the past couple of days that she has had upper respiratory symptoms. She went to an urgent care yesterday for this. They did find that the patient was hypertensive. States that her blood pressure is always high when it is checked and a medical facility but that it will return to normal when she is at home. She is not currently on any antihypertensive medications. She woke up this morning and felt palpitations in her chest. She took her blood pressure and it was found to be high at home therefore this is what prompted her to come into the emergency department. She denies having any chest pain. She did have a sore throat yesterday however this is now gone. Cough is nonproductive. She denies any previous history of cardiac disease. No concern for . Does admit that she is a heavy daily drinker and drinks approximately a gallon of alcohol per week. She denies having any fevers. No nausea, vomiting or diarrhea. No other alleviating, precipitating precipitating or modifying factors (Karen Beck) - Related Data Previous Rx's Medication Instructions Recorded Propranolol [Inderal] 20 mg PO TID PRN #30 tab 06/23/24 Allergies Allergy/AdvReac Type Severity Reaction Status Date / Time Sulfa (Sulfonamide AdvReac Nausea Verified 06/23/24 16:13 Antibiotics) Review of Systems ROS Other: All systems not noted in ROS Statement are negative. <Candida Mario - Last Filed: 06/23/24 15:12> ROS Other: All systems not noted in ROS Statement are negative. <Karen Beck - Last Filed: 06/24/24 23:05> ROS Statement: Those systems with pertinent positive or pertinent negative responses have been documented in the HPI. Past Medical History Past Medical History: No Reported History History of Any Multi-Drug Resistant Organisms: None Reported Additional Past Surgical History / Comment(s): eye surgery, LEEP Past Psychological History: No Psychological Hx Reported Smoking Status: Current every day smoker Past Alcohol Use History: Abuse, Daily Past Drug Use History: None Reported <MelquiadestaishaCandida - Last Filed: 06/23/24 15:12> General Exam <FabianoCandida - Last Filed: 06/23/24 15:12> General appearance: alert, in no apparent distress Head exam: Present: atraumatic, normocephalic, normal inspection Eye exam: Present: normal appearance, PERRL, EOMI. Absent: scleral icterus, co njunctival injection, periorbital swelling ENT exam: Present: normal exam, mucous membranes moist Neck exam: Present: normal inspection. Absent: tenderness, meningismus, lymphadenopathy Respiratory exam: Present: normal lung sounds bilaterally. Absent: respiratory distress, wheezes, rales, rhonchi, stridor Cardiovascular Exam: Present: normal rhythm, tachycardia, normal heart sounds. Absent: systolic murmur, diastolic murmur, rubs, gallop, clicks GI/Abdominal exam: Present: soft, normal bowel sounds. Absent: distended, tenderness, guarding, rebound, rigid Extremities exam: Present: normal inspection, full ROM, normal capillary refill. Absent: tenderness, pedal edema, joint swelling, calf tenderness Back exam: Present: normal inspection Neurological exam: Present: alert, oriented X3, CN II-XII intact Psychiatric exam: Present: normal affect, normal mood Skin exam: Present: warm, dry, intact, normal color. Absent: rash <Karen Beck - Last Filed: 06/24/24 23:05> - General Exam Comments Initial Comments: Visual Physical Exam Vital signs reviewed General: Well-appearing, nontoxic, no acute distress. Tearful Head: Normocephalic, atraumatic Eyes: PERRLA, EOMI ENT: Airway patent Chest: Nonlabored breathing Skin: No visual rash, normal skin tone Neuro: Alert and oriented 3 Musculoskeletal: No gross abnormalities (Candida Mario) Course Vital Signs 06/23/24 06/23/24 06/23/24 15:13 16:00 16:30 Temperature 98.3 F Pulse Rate 155 H 108 H 101 H Respiratory 20 23 18 Rate Blood Pressure 170/117 175/116 177/105 O2 Sat by Pulse 99 99 98 Oximetry 06/23/24 06/23/24 06/23/24 17:00 17:30 18:30 Temperature Pulse Rate 94 98 93 Respiratory 16 17 21 Rate Blood Pressure 166/107 155/98 149/106 O2 Sat by Pulse 99 99 97 Oximetry 06/23/24 19:40 Temperature Pulse Rate 94 Respiratory 20 Rate Blood Pressure 142/84 O2 Sat by Pulse 97 Oximetry Medical Decision Making <Candida Mario - Last Filed: 06/23/24 15:12> - Lab Data Result diagrams: 06/23/24 15:36 06/23/24 15:36 <Karen Beck - Last Filed: 06/24/24 23:05> - Medical Decision Making I performed the quick note portion of this chart. Electronically signed by Candida Mario PA-C (Candida Mario) Was pt. sent in by a medical professional or institution (KATHYA Birch, SECONDARY SCHOOL PRINCIPAL, urgent care, hospital, or prison...) When possible be specific @ -No Did you speak to anyone other than the patient for history (EMS, parent, family, police, friend...)? What history was obtained from this source @ -No Did you review nursing and triage notes (agree or disagree)? Why? @ -I reviewed and agree with nursing and triage notes Were old charts reviewed (outside hosp., previous admission, EMS record, old EKG, old radiological studies, urgent care reports/EKG's, prison records)? Report findings @ -No old charts were reviewed Differential Diagnosis (chest pain, altered mental status, abdominal pain women, abdominal pain men, vaginal bleeding, weakness, fever, dyspnea, syncope, headache, dizziness, GI bleed, back pain, seizure, CVA, palpatations, mental health, musculoskeletal)? @ -Differential Palpitations Ventricular arrhythmias, atrial arrhythmias, myocardial infarction, anemia, thyrotoxicosis, electrolyte imbalance, hypokalemia, pulmonary embolism, pulmonary disease, drugs, alcohol, anxiety, stress.... This is not meant to be an all-inclusive list. EKG interpreted by me (3pts min.). @ -Yes and demonstrates sinus tachycardia with rate of 125. NJ interval 84. QRS 77. QTc of 368. No acute ST segment elevations or depressions X-rays interpreted by me (1pt min.). @ -Yes and demonstrates no acute process CT interpreted by me (1pt min.). @ -Yes and demonstrates no acute process U/S interpreted by me (1pt. min.). @ -None done What testing was considered but not performed or refused? (CT, X-rays, U/S, labs)? Why? @ -None What meds were considered but not given or refused? Why? @ -None Did you discuss the management of the patient with other professionals (professionals i.e. DrIzabel, PA, SECONDARY SCHOOL PRINCIPAL, lab, RT, psych nurse, health and social care teacher, director of sales support, teacher, disability hearing officer, case management social worker)? Give summary @ -No Was smoking cessation discussed for >3mins.? @ -No Was critical care preformed (if so, how long)? @ -No Were there social determinants of health that impacted care today? How? (Homeles sness, low income, unemployed, alcoholism, drug addiction, transportation, low edu. Level, literacy, decrease access to med. care, snf, rehab)? @ -No Was there de-escalation of care discussed even if they declined (Discuss DNR or withdrawal of care, Hospice)? DNR status @ -No What co-morbidities impacted this encounter? (DM, HTN, Smoking, COPD, CAD, Cancer, CVA, ARF, Chemo, Hep., AIDS, mental health diagnosis, sleep apnea, morbid obesity)? @ -Daily alcohol use Was patient admitted / discharged? Hospital course, mention meds given and route, prescriptions, significant lab abnormalities, going to OR and other pertinent info. @ -Upon arrival patient seen and evaluated in trauma 2. Thorough history and physical exam was performed. IV access was established. Laboratory studies are conducted. Chest x-ray was performed. This is followed by CT of the chest as patient does have elevated D-dimer. Results are discussed with the patient. Her heart rate has improved into the 90s on its own. Blood pressure has improved. I did discuss the treatment options. I do feel that the patient requires a Holter monitor and further blood pressure readings before antihypertensives are initiated. I did give her the option to take a prescription of propranolol. Parameters are given on this medication. Patient is to take this medication when her heart rate is sustained above 120 her blood pressure readings are greater than 160. Patient was agreeable to this. She will follow-up with primary care. Keep a log of her blood pressures and heart rate and take this into them. Return to the emergency department any new or worsening symptoms. Patient agreeable plan was discharged in stable condition Undiagnosed new problem with uncertain prognosis? @ -No Drug Therapy requiring intensive monitoring for toxicity (Heparin, Nitro, Insulin, Cardizem)? @ -No Were any procedures done? @ -No Diagnosis/symptom? @ -Acute sinus tachycardia, accelerated hypertension, elevated D-dimer, evalu ation for PE Acute, or Chronic, or Acute on Chronic? @ -Acute Uncomplicated (without systemic symptoms) or Complicated (systemic symptoms)? @ -Complicated Side effects of treatment? @ -No Exacerbation, Progression, or Severe Exacerbation? @ -No Poses a threat to life or bodily function? How? (Chest pain, [place], [place], pneumonia, PE, COPD, DKA, ARF, appy, cholecystitis, CVA, Diverticulitis, Homicidal, Suicidal, threat to staff... and all critical care pts) @ -No (Karen Beck) - Lab Data Lab Results 06/23/24 06/23/24 06/23/24 Range/Units 15:36 15:36 15:36 WBC 6.8 (3.8-10.6) k/uL RBC 4.76 (3.80-5.40) m/uL Hgb 16.7 H (11.4-16.0) gm/dL Hct 49.1 H (34.0-46.0) % MCV 103.1 H (80.0-100.0) fL MCH 35.2 H (25.0-35.0) pg MCHC 34.1 (31.0-37.0) g/dL RDW 12.4 (11.5-15.5) % Plt Count 187 (150-450) k/uL MPV 7.2 Neutrophils % 77 % Lymphocytes % 15 % Monocytes % 5 % Eosinophils % 1 % Basophils % 0 % Neutrophils # 5.2 (1.3-7.7) k/uL Lymphocytes # 1.0 (1.0-4.8) k/uL Monocytes # 0.4 (0-1.0) k/uL Eosinophils # 0.1 (0-0.7) k/uL Basophils # 0.0 (0-0.2) k/uL Macrocytosis Slight PT 10.0 (10.0-12.5) sec INR 0.9 (<1.2) APTT 24.4 (22.0-30.0) sec D-Dimer 0.88 H (<0.60) mg/L FEU Sodium 140 (137-145) mmol/L Potassium 3.5 (3.5-5.1) mmol/L Chloride 99 (98-107) mmol/L Carbon Dioxide 26 (22-30) mmol/L Anion Gap 15 mmol/L BUN 6 L (7-17) mg/dL Creatinine 0.83 (0.52-1.04) mg/dL Est GFR (CKD-EPI)AfAm >90 (>60 ml/min/1.73 sqM) Est GFR (CKD-EPI)NonAf 89 (>60 ml/min/1.73 sqM) Glucose 100 H (74-99) mg/dL Calcium 10.4 H (8.4-10.2) mg/dL Magnesium 1.5 L (1.6-2.3) mg/dL Total Bilirubin 1.1 (0.2-1.3) mg/dL AST 49 H (14-36) U/L ALT 23 (4-34) U/L Alkaline Phosphatase 96 (38-126) U/L Troponin I (0.000-0.034) ng/mL Total Protein 8.5 H (6.3-8.2) g/dL Albumin 5.3 H (3.5-5.0) g/dL TSH 2.350 (0.465-4.680) mIU/L HCG, Qual Not Detected Urine Color Urine Appearance (Clear) Urine pH (5.0-8.0) Ur Specific [place] (1.001-1.035) Urine Protein (Negative) Urine Glucose (UA) (Negative) Urine Ketones (Negative) Urine Blood (Negative) Urine Nitrite (Negative) Urine Bilirubin (Negative) Urine Urobilinogen (<2.0) mg/dL Ur Leukocyte Esterase (Negative) Urine RBC (0-5) /hpf Urine WBC (0-5) /hpf Ur Squamous Epith Cells (0-4) /hpf Urine Mucus (None) /hpf Urine Opiates Screen (NotDetected) Ur Oxycodone Screen (NotDetected) Urine Methadone Screen (NotDetected) Ur Barbiturates Screen (NotDetected) U Tricyclic Antidepress (NotDetected) Ur Phencyclidine Scrn (NotDetected) Ur Amphetamines Screen (NotDetected) U Methamphetamines Scrn (NotDetected) U Benzodiazepines Scrn (NotDetected) Urine Cocaine Screen (NotDetected) U Marijuana (THC) Screen (NotDetected) Serum Alcohol <10 mg/dL Influenza Type A (PCR) (Not Detectd) Influenza Type B (PCR) (Not Detectd) RSV (PCR) (Not Detectd) SARS-CoV-2 (PCR) (Not Detectd) 06/23/24 06/23/24 06/23/24 Range/Units 15:36 15:36 16:21 WBC (3.8-10.6) k/uL RBC (3.80-5.40) m/uL Hgb (11.4-16.0) gm/dL Hct (34.0-46.0) % MCV (80.0-100.0) fL MCH (25.0-35.0) pg MCHC (31.0-37.0) g/dL RDW (11.5-15.5) % Plt Count (150-450) k/uL MPV Neutrophils % % Lymphocytes % % Monocytes % % Eosinophils % % Basophils % % Neutrophils # (1.3-7.7) k/uL Lymphocytes # (1.0-4.8) k/uL Monocytes # (0-1.0) k/uL Eosinophils # (0-0.7) k/uL Basophils # (0-0.2) k/uL Macrocytosis PT (10.0-12.5) sec INR (<1.2) APTT (22.0-30.0) sec D-Dimer (<0.60) mg/L FEU Sodium (137-145) mmol/L Potassium (3.5-5.1) mmol/L Chloride (98-107) mmol/L Carbon Dioxide (22-30) mmol/L Anion Gap mmol/L BUN (7-17) mg/dL Creatinine (0.52-1.04) mg/dL Est GFR (CKD-EPI)AfAm (>60 ml/min/1.73 sqM) Est GFR (CKD-EPI)NonAf (>60 ml/min/1.73 sqM) Glucose (74-99) mg/dL Calcium (8.4-10.2) mg/dL Magnesium (1.6-2.3) mg/dL Total Bilirubin (0.2-1.3) mg/dL AST (14-36) U/L ALT (4-34) U/L Alkaline Phosphatase (38-126) U/L Troponin I <0.012 (0.000-0.034) ng/mL Total Protein (6.3-8.2) g/dL Albumin (3.5-5.0) g/dL TSH (0.465-4.680) mIU/L HCG, Qual Urine Color Colorless Urine Appearance Clear (Clear) Urine pH 6.5 (5.0-8.0) Ur Specific [place] >1.050 H (1.001-1.035) Urine Protein Negative (Negative) Urine Glucose (UA) Negative (Negative) Urine Ketones 1+ H (Negative) Urine Blood Moderate H (Negative) Urine Nitrite Negative (Negative) Urine Bilirubin Negative (Negative) Urine Urobilinogen <2.0 (<2.0) mg/dL Ur Leukocyte Esterase Negative (Negative) Urine RBC 1 (0-5) /hpf Urine WBC 1 (0-5) /hpf Ur Squamous Epith Cells 2 (0-4) /hpf Urine Mucus Rare H (None) /hpf Urine Opiates Screen Not Detected (NotDetected) Ur Oxycodone Screen Not Detected (NotDetected) Urine Methadone Screen Not Detected (NotDetected) Ur Barbiturates Screen Not Detected (NotDetected) U Tricyclic Antidepress Not Detected (NotDetected) Ur Phencyclidine Scrn Not Detected (NotDetected) Ur Amphetamines Screen Not Detected (NotDetected) U Methamphetamines Scrn Not Detected (NotDetected) U Benzodiazepines Scrn Not Detected (NotDetected) Urine Cocaine Screen Not Detected (NotDetected) U Marijuana (THC) Screen Not Detected (NotDetected) Serum Alcohol mg/dL Influenza Type A (PCR) Not Detected (Not Detectd) Influenza Type B (PCR) Not Detected (Not Detectd) RSV (PCR) Not Detected (Not Detectd) SARS-CoV-2 (PCR) Not Detected (Not Detectd) Disposition <Candida Mario - Last Filed: 06/23/24 15:12> Is patient prescribed a controlled substance at d/c from ED?: No Time of Disposition: 19:31 <Karen Beck - Last Filed: 06/24/24 23:05> Clinical Impression: Palpitations, High blood pressure Disposition: HOME SELF-CARE Condition: Stable Instructions (If sedation given, give patient instructions): Heart Palpitations (ED) Additional Instructions: Recommend that you see a primary care doctor who can place a Holter monitor on you. Please check your blood pressure 3 times a day and keep a log. If your blood pressure is consistently above 160/90 or your heart rate is consistently above 120 for greater than 5 minutes, take the propranolol. You may take this up to three times daily. Return to the emergency department for any new or worsening symptoms Prescriptions: Propranolol [Inderal] 20 mg PO TID PRN #30 tab PRN Reason: Hypertension Referrals: Donn Adamson MD [REFERRING] - 1-2 days Danielle Fulton MD [STAFF PHYSICIAN] - 1-2 days Nazario Pennington DO [STAFF PHYSICIAN] - 1-2 days
[2024-06-23 15:15] VITALS: TEMP 98.3
[2024-06-23] MEDS: SODIUM CHLORIDE 0.9% 1,000 ML IV STA (15:43)
[2024-06-23 15:50] LABS: Basophils % (A) 0 %; Eosinophils # (A) 0.1 k/uL (0-0.7); Eosinophils % (A) 1 %; HCT 49.1 % (34.0-46.0); HGB 16.7 gm/dL (11.4-16.0); Lymphocytes % (A) 15 %; MCH 35.2 pg (25.0-35.0); MCHC 34.1 g/dL (31.0-37.0); MCV 103.1 fL (80.0-100.0); Macrocytosis Slight; Mean Platelet Volume 7.2; Monocytes # (A) 0.4 k/uL (0-1.0); Monocytes % (A) 5 %; Neutrophils # (A) 5.2 k/uL (1.3-7.7); Neutrophils % (A) 77 %; Platelet Count 187 k/uL (150-450); RBC 4.76 m/uL (3.80-5.40); RDW 12.4 % (11.5-15.5); WBC 6.8 k/uL (3.8-10.6)
--- NOTE | 2024-06-23 15:50 | XR ---
EXAMINATION TYPE: XR chest 2V DATE OF EXAM: 06/23/2024 3:47 PM COMPARISON: Chest radiographs from 11/03/2023 CLINICAL INDICATION: Female, 38 years old with history of dysrhythmia; TECHNIQUE: XR chest 2V Frontal and lateral views of the chest. FINDINGS: Lungs/Pleura: There is no evidence of pleural effusion, focal consolidation, or pneumothorax. Pulmonary vascularity: Unremarkable. Heart/mediastinum: Cardiomediastinal silhouette is unremarkable. Musculoskeletal: No acute osseous pathology. IMPRESSION: No acute cardiopulmonary disease/process. [facility], , 06/23/2024 3:48 PM
[2024-06-23 16:25] LABS: INR 0.9 (<1.2); Partial Thromboplastin Time 24.4 sec (22.0-30.0)
[2024-06-23 16:27] LABS: ALT 23 U/L (4-34); AST 49 U/L (14-36); African American GFR (CKD) >90 (>60 ml/min/1.73 sqM); Albumin 5.3 g/dL (3.5-5.0); Alcohol <10 mg/dL; Alkaline Phosphatase 96 U/L (38-126); Anion Gap 15 mmol/L; Blood Urea Nitrogen 6 mg/dL (7-17); Calcium 10.4 mg/dL (8.4-10.2); Carbon Dioxide 26 mmol/L (22-30); Chloride 99 mmol/L (98-107); Glucose 100 mg/dL (74-99); Magnesium 1.5 mg/dL (1.6-2.3); Non-African American GFR(CKD) 89 (>60 ml/min/1.73 sqM); Potassium 3.5 mmol/L (3.5-5.1); Sodium 140 mmol/L (137-145); Total Bilirubin 1.1 mg/dL (0.2-1.3); Total Protein 8.5 g/dL (6.3-8.2)
[2024-06-23 17:08] LABS: HCG,Qualitative Serum Not Detected
--- NOTE | 2024-06-23 17:58 | CT ---
EXAMINATION TYPE: CT chest angio for PE DATE OF EXAM: 06/23/2024 5:49 PM COMPARISON: None. CLINICAL INDICATION: Female, 38 years old with history of elevated d-dimer, tachycardia; c/o palpatat ions and sob, elevated d-dimer. TECHNIQUE/CONTRAST: CTA scan of the thorax is performed with IV Contrast, patient injected with 100cc mL of Isovue 370, M IP images are created and reviewed these are created on a separate workstation.. CT DLP: 209.7 mGycm, Automated exposure control for dose reduction was used. FINDINGS: Pulmonary Artery: There is no evidence for a filling defect within the pulmonary vasculature to sugge st acute pulmonary embolism. The pulmonary artery is of normal size. Lungs/Pleura: No evidence of focal consolidation, pleural effusion or pneumothorax. Airway: Large airways are patent. Heart: Heart is within normal limits for size. Vasculature: No evidence of aortic aneurysm. Mediastinum: No gross evidence of adenopathy. Musculoskeletal: No acute osseous abnormalities Soft Tissues/lymph nodes: Unremarkable. Lower neck: No significant findings. Upper Abdomen: No significant findings. IMPRESSION: No evidence of acute pulmonary embolism or acute pulmonary pathology. [facility], , 06/23/2024 5:56 PM
[2024-06-23 18:20] LABS: Appearance,Urine Clear (Clear); Bilirubin,Urine Negative (Negative); Blood,Urine Moderate (Negative); Color,Urine Colorless; Glucose,Urine (UA) Negative (Negative); Ketones,Urine 1+ (Negative); Leukocyte Esterase,Urine Negative (Negative); Mucus,Urine Rare /hpf; Nitrite,Urine Negative (Negative); PH, Urine 6.5 (5.0-8.0); Protein,Urine Negative (Negative); RBC,Urine 1 /hpf (0-5); Squamous Epithelial Cell,Urine 2 /hpf (0-4); Urobilinogen,Urine <2.0 mg/dL (<2.0); WBC,Urine 1 /hpf (0-5)
[2024-06-23 18:28] LABS: Specific Gravity,Urine >1.050 (1.001-1.035)
[2024-06-23 18:36] LABS: Amphetamine Screen,Urine Not Detected (NotDetected); Barbiturate Screen,Urine Not Detected (NotDetected); Benzodiazepines Screen,Urine Not Detected (NotDetected); Cocaine Screen,Urine Not Detected (NotDetected); Methadone Screen, Urine Not Detected (NotDetected); Opiate Screen,Urine Not Detected (NotDetected); Oxycodone Screen, Urine Not Detected (NotDetected); Phencyclidine Screen,Urine Not Detected (NotDetected); Tricyclic Antidepressant,Urine Not Detected (NotDetected); Urn Cannabinoid Scrn Not Detected (NotDetected)
[2024-06-23 19:41] VITALS: BP 142/84; PULSE 94; RESP 20
== END 2024-06-23 19:45 | disposition home or self-care (01) ==
LOC: EC 14:57
DX: I10 Essential (primary) hypertension (principal); R00.2 Palpitations; F17.200 Nicotine dependence, unspecified, uncomplicated; Z88.2 Allergy status to sulfonamides
CPT/HCPCS: 36415; 93005; 85379; 80053; 84443; 83735; 84484; 85025; 85610; 85730; 81001; 84703; 80306; 87636; 71046; 71275; 99285; 96360; G0480; Q9967; 80320